=== PATIENT | male | born 1960 | race Caucasian/White ===

== ENCOUNTER 2016-07-11 11:20 | Emergency (ER) | payer OTHER ==
[2016-07-11] MEDS ORDERED: HYDROcodone/Acetaminophen 10/325 mg Tablet ONE (12:01)
[2016-07-11] MEDS ORDERED: Cyclobenzaprine 10 MG TAB ONE (12:02)
[2016-07-11] MEDS ORDERED: Ibuprofen 800 MG TAB ONE (12:02)
--- NOTE | 2016-07-11 12:48 | ERRECORD ---
[facility] HPI BACK (12:00 SROB) CHIEF COMPLAINT: Patient presents for evaluation of injury, Patient presents for evaluation of pain. HISTORIAN: History provided by patient. MECHANISM OF INJURY: Mechanism of injury: Body motion, extension, He was moving from crouched toupright positon yesterday when he felt sudden pain in the lower back. This is similar to prior episode about 10 years ago. LOCATION: Symptoms are localized to the back, to lumbar spine. SEVERITY: Maximum severity of symptoms severe, Currently symptoms are severe. TIME COURSE: Sudden onset of symptoms, Date and time of onset was 07/10/2016 16:02. ASSOCIATED WITH: Associated with abdominal pain, No associated bladder incontinence, No associated bowel incontinence, No associated fever, He has trouble standing upright to walk without assistance due to pain. EXACERBATED BY: Patient's condition exacerbated by extension, Patient's condition exacerbated by upright position, Patient's condition exacerbated by walking. RELIEVED BY: Patient's condition relieved by nothing. RISK FACTORS: No epidural bleed risk factors, No epidural abcess risk factors. ROS (12:04 SROB) CONSTITUTIONAL: Historian denies chills, denies fever. ENT: Historian denies epistaxis, denies otalgia, denies rhinorrhea, denies sore throat. CARDIOVASCULAR: Historian denies chest pain. GI: Historian denies nausea, denies vomiting. MUSCULOSKELETAL: Historian reports back pain, reports neck pain. He says he has had some pain readiating from the occiput into his right neck for the last week as well prior totheinjury causing his v9isit. He gives a history of a bad disc at L4?. SKIN: Historian denies rash. NEUROLOGIC: Historian denies headache. PAST MEDICAL HISTORY (11:43 BDON) MEDICAL HISTORY: Notes: gout, back pain, Flu vaccine not up to date, Tetanus immunization up to date, Pneumococcal vaccine not up to date, Past medical history includes history of hypertension, which has been treated, Patient is compliant. MALE SURGICAL HISTORY: Surgical history of hernia repair. PSYCHIATRIC HISTORY: No previous psychiatric history. SOCIAL HISTORY: Patient denies alcohol use, Patient denies drug use, Patient has no smoking history. KNOWN ALLERGIES No Known Allergies (Unconfirmed) No Known Drug Allergies &a-1R&a+25V*p+0X*n6008X*c202B*c15G*c2P*p-0X&a-25V&a+1R Name: Phil Kwan : 1960 M55 MedRec: [id number] AcctNum: [id number] Prepared: Sat Jul 11, 2016 13:41 by Interface Page 1 of 3 pMD [facility] EMERGENCY RECORD CURRENT MEDICATIONS amLODIPine: TABLET : Strength - 10 mg : ORAL Patient Dose: 10 mg Oral once a day.PT NOT SURE OF DOSAGE. (11:38 BDON) indomethacin: CAPSULE : Strength - 50 mg : ORAL Patient Dose: As Needed. (11:39 BDON) cortisone: TABLET : Strength - 10 mg : ORAL Patient Dose: 2 times a day. (11:40 BDON) VITAL SIGNS (12:51 EPIE) VITAL SIGNS: BP: 137/82, Pulse: 80, Resp: 20, Temp: 98.1 oral, Pain: 1, O2 sat: 96 on ra, Time: 07/11/2016 12:51. PHYSICAL EXAM CONSTITUTIONAL: Vital signs reviewed, Patient alert and oriented to person, place and time. (12:05 SROB) HEAD: Head exam included findings of head atraumatic, normocephalic. (12:05 SROB) EYES: Pupils equally round and reactive to light, Extraocular muscles intact, Conjunctiva normal. (12:05 SROB) ENT: Ear exam normal, external ear normal, no drainage, no bleeding, Nose exam normal, no bleeding from nares. (12:05 SROB) NECK: Neck exam included findings of normal range of motion, Trachea midline, no jugular venous distention. (12:05 SROB) RESPIRATORY CHEST: Respiratory exam included findings of no respiratory distress, Breath sounds clear, No wheezing, No rales, No rhonchi. (12:05 SROB) CARDIOVASCULAR: Cardiovascular exam included findings of heart rate regular rate and rhythm, Heart sounds normal, normal S1, normal S2, no murmurs. (12:05 SROB) ABDOMEN MALE: Abdominal exam normal. (12:06 SROB) BACK: Back exam included findings of normal inspection, Range of motion, limited by pain, no costovertebral angle tenderness, Straight leg raise, with pain on the left at 30 degrees, with pain on the right at 30 degrees. (12:06 SROB) NEURO: Neuro exam findings include patient oriented to person, place and time, [place] coma scale 15, Speech normal, Gait normal, Memory normal, Cranial nerves intact, Deep tendon reflexes normal, no focal motor deficits, no focal sensory deficits, no cerebellar deficits, Normal sensation legs and groin area. (12:06 SROB) SKIN: Skin exam included findings of skin warm, dry. (12:05 SROB) MEDICATION ADMINISTRATION SUMMARY &a-1R&a+25V*p+0X*l5290W*c202B*c15G*c2P*p-0X&a-25V&a+1R Name: Phil Kwan : 1960 M55 MedRec: [id number] AcctNum: [id number] Prepared: Sat Jul 11, 2016 13:41 by Interface Page 2 of 3 pMD [facility] EMERGENCY RECORD Drug Name: Excel, Dose Ordered: 10/325 mg, Route: Oral, Status: Given, Time: 12:06 07/11/2016, Drug Name: Motrin, Dose Ordered: 800 mg, Route: Oral, Status: Given, Time: 12:07/11/2016, Drug Name: Flexeril, Dose Ordered: 10 mg, Route: Oral, Status: Given, Time: 12:05 07/11/2016, Detailed record available in Medication Service section. DOCTOR NOTES (12:44 SROB) RE-EVALUATION: The patient's condition has improved, Pt. able to walk with minor pain after meds. PROBLEM LIST No recorded problems DIAGNOSIS (12:42 SROB) FINAL: PRIMARY: LOW BACK PAIN. PRESCRIPTION Flexeril: TABLET : 10 mg : ORAL : Quantity: 1 Unit: tab(s) Route: ORAL Schedule: every 8 hours PRN Dispense: 30 Unit: tab(s) May substitute. Refills: No Refills . (12:41 SROB) NOTES: No Refills. (12:41 SROB) Naprosyn: TABLET : 500 mg : ORAL : Quantity: 1 Unit: tab(s) Route: ORAL Schedule: 2 times a day Dispense: 30 Unit: tab(s) May substitute. Refills: No Refills . (12:42 SROB) NOTES: No Refills. (12:42 SROB) DISPOSITION PATIENT: Disposition Type: Discharge, Disposition: *Discharge Home, Disposition Transport: Ambulatory, Condition: Good. (12:42 SROB) Patient left the department. (12:58 EPIE) Mcleod: BDON=SHERRY Solano, Concepcion EPIE=SHERRY Scanlon, Ava SROB=MD Denis, Jorge Luis &a-1R&a+25V*p+0X*b4957P*c202B*c15G*c2P*p-0X&a-25V&a+1R Name: Aniya Phil Marilin : 1960 M55 MedRec: [id number] AcctNum: [id number] Prepared: Mick Jul 11, 2016 13:41 by Interface Page 3 of 3 pMD MTDD
--- NOTE | 2016-07-11 12:54 | PICIS ---
[facility] EMERGENCY RECORD TRIAGE ([facility] Jul 11, 2016 11:38 BDON) TRIAGE NOTES: Bilateral low back pain radiating into bilateral thigh. States whole body "seizes up". ([facility] Jul 11, 2016 11:38 BDON) PATIENT: NAME: Phil Kwan, AGE: 55, GENDER: male, : Wed1960, TIME OF GREET: WedJul 11, 2016 11:21, PREFERRED LANGUAGE: Japanese, ETHNICITY: Not or , ECODE BILLING MAP: [facility], SSN: [id number], Zip Code: [address], KG WEIGHT: 113.40, PHONE: , , , PERSON ID: [id number], PCP: Natalie Rogers, /Sandy. ([facility] Jul 11, 2016 11:38 BDON) COMPLAINT: LOW BACK PAIN. ([facility] Jul 11, 2016 11:38 BDON) ADMISSION: URGENCY: 4 Non Urgent, ADMISSION SOURCE: Home, TRANSPORT: Walk-in, BED: TRIAGE. ([facility] Jul 11, 2016 11:38 BDON) ASSESSMENT: Assessment: In the attic, crunched over, stood up and pain started. (11:43 BDON) PAIN: Patient complains of pain described as. (11:43 BDON) TREATMENTS IN PROGRESS: Medications Given, Treatments given Prehospital: muscler relaxer 2 tablets 0800. (11:43 BDON) PROVIDERS: TRIAGE NURSE: Concepcion Solano RN. ([facility] Jul 11, 2016 11:38 BDON) PREVIOUS VISIT ALLERGIES: No Known Drug Allergies. ([facility] Jul 11, 2016 11:38 BDON) No Known Drug Allergies. (11:43 BDON) KNOWN ALLERGIES No Known Allergies (Unconfirmed) No Known Drug Allergies CURRENT MEDICATIONS amLODIPine: TABLET : Strength - 10 mg : ORAL Patient Dose: 10 mg Oral once a day.PT NOT SURE OF DOSAGE. (11:38 BDON) indomethacin: CAPSULE : Strength - 50 mg : ORAL Patient Dose: As Needed. (11:39 BDON) cortisone: TABLET : Strength - 10 mg : ORAL Patient Dose: 2 times a day. (11:40 BDON) VITAL SIGNS (12:51 EPIE) VITAL SIGNS: BP: 137/82, Pulse: 80, Resp: 20, Temp: 98.1 oral, Pain: 1, O2 sat: 96 on ra, Time: 07/11/2016 12:51. NURSING ASSESSMENT: BACK (11:45 BDON) CONSTITUTIONAL: Patient arrives, via hospital wheelchair, History obtained from patient, Patient appears, in distress due to pain, Patient cooperative, Patient alert, Oriented to person, &a-1R&a+25V*p+0X*r6520R*c202B*c15G*c2P*p-0X&a-25V&a+1R Name: Phil Kwan : 1960 M55 MedRec: [id number] AcctNum: [id number] Prepared: Sat Jul 11, 2016 13:47 by Interface Page 1 of 6 pMD [facility] EMERGENCY RECORD place and time, Skin warm, Skin dry, Skin normal in color. PAIN: to the lower back, radiates bilateral legs. BACK: Weakness to. NECK: Neck assessment findings include trachea midline. SAFETY: Cart/Stretcher in lowest position, Family at bedside, Hospital ID band on, Patient in view of the nursing station. NURSING PROCEDURE: DISCHARGE NOTE (12:51 EPIE) DISCHARGE: Patient discharged to home, ambulating without assistance, family driving, accompanied by //partner, Summary of Care printed/ provided, Discharge instructions given to patient, Simple or moderate discharge teaching performed, Prescriptions given and instructions on side effects given, Name of prescription(s) given: norco, flexeril, naprosyn, Above person(s) verbalized understanding of discharge instructions and follow-up care. BELONGINGS: Belongings and valuables with patient upon arrival to the Emergency Department include:, Belongings and valuables with patient at time of discharge include:, Belongings remain with patient, Valuables remain with patient. VITAL SIGNS: BP: 137, / 82, Pulse: 80, Resp: 20, Temp: 98.1 oral, Pain: 1, O2 sat: 96, on: ra. MEDICATION ADMINISTRATION SUMMARY Drug Name: [place], Dose Ordered: 10/325 mg, Route: Oral, Status: Given, Time: 12:06 07/11/2016, Drug Name: Motrin, Dose Ordered: 800 mg, Route: Oral, Status: Given, Time: 12:05 07/11/2016, Drug Name: Flexeril, Dose Ordered: 10 mg, Route: Oral, Status: Given, Time: 12:05 07/11/2016, Detailed record available in Medication Service section. MEDICATION SERVICE Flexeril: Order: Flexeril (cyclobenzaprine HCl) - Dose: 10 mg : Oral Schedule: Now Ordered by: Jorge Luis Barrios MD Entered by: Jorge Luis Barrios MD Sat Jul 11, 2016 11:57 , Acknowledged by: Ava Scanlon RN Sat Jul 11, 2016 12:01 Documented as given by: Ava Scanlon RN Sat Jul 11, 2016 12:05 Patient, Medication, Dose, Route and Time verified prior to administration. Amount given: 10mg, Site: Medication administered P.O., Correct patient, time, route, dose and medication confirmed prior to administration, Patient advised of actions and side-effects prior to administration, Allergies confirmed and medications reviewed prior to administration. Motrin: Order: Motrin (ibuprofen) - Dose: 800 mg : Oral &a-1R&a+25V*p+0X*z8311Q*c202B*c15G*c2P*p-0X&a-25V&a+1R Name: Phil Kwan : 1960 M55 MedRec: [id number] AcctNum: [id number] Prepared: Sat Jul 11, 2016 13:47 by Interface Page 2 of 6 pMD [facility] EMERGENCY RECORD Schedule: Now Ordered by: Jorge Luis Barrios MD Entered by: Jorge Luis Barrios MD Sat Jul 11, 2016 11:57 , Acknowledged by: Ava Scanlon RN Sat Jul 11, 2016 12:01 Documented as given by: Ava Scanlon RN Sat Jul 11, 2016 12:05 Patient, Medication, Dose, Route and Time verified prior to administration. Amount given: 800mg, Site: Medication administered P.O., Correct patient, time, route, dose and medication confirmed prior to administration, Patient advised of actions and side-effects prior to administration, Allergies confirmed and medications reviewed prior to administration. Plainview: Order: [place] (hydrocodone bitartrate/acetaminophen) - Dose: 10/325 mg : Oral Schedule: Now Ordered by: Jorge Luis Barrios MD Entered by: Jorge Luis Barrios MD Sat Jul 11, 2016 11:56 , Acknowledged by: Ava Scanlon RN Sat Jul 11, 2016 12:01 Documented as given by: Ava Scanlon RN Sat Jul 11, 2016 12:06 Patient, Medication, Dose, Route and Time verified prior to administration. Amount given: 10/325mg, Site: Medication administered P.O., Correct patient, time, route, dose and medication confirmed prior to administration, Patient advised of actions and side-effects prior to administration, Allergies confirmed and medications reviewed prior to administration. HPI BACK (12:00 SROB) CHIEF COMPLAINT: Patient presents for evaluation of injury, Patient presents for evaluation of pain. HISTORIAN: History provided by patient. MECHANISM OF INJURY: Mechanism of injury: Body motion, extension, He was moving from crouched toupright positon yesterday when he felt sudden pain in the lower back. This is similar to prior episode about 10 years ago. LOCATION: Symptoms are localized to the back, to lumbar spine. SEVERITY: Maximum severity of symptoms severe, Currently symptoms are severe. TIME COURSE: Sudden onset of symptoms, Date and time of onset was 07/10/2016 16:02. ASSOCIATED WITH: Associated with abdominal pain, No associated bladder incontinence, No associated bowel incontinence, No associated fever, He has trouble standing upright to walk without assistance due to pain. EXACERBATED BY: Patient's condition exacerbated by extension, Patient's condition exacerbated by upright position, Patient's condition exacerbated by walking. RELIEVED BY: Patient's condition relieved by nothing. RISK FACTORS: No epidural bleed risk factors, No epidural abcess risk factors. ROS (12:04 SROB) &a-1R&a+25V*p+0X*f7013W*c202B*c15G*c2P*p-0X&a-25V&a+1R Name: Phil Kwan : 1960 M55 MedRec: [id number] AcctNum: [id number] Prepared: Sat Jul 11, 2016 13:47 by Interface Page 3 of 6 pMD [facility] EMERGENCY RECORD CONSTITUTIONAL: Historian denies chills, denies fever. ENT: Historian denies epistaxis, denies otalgia, denies rhinorrhea, denies sore throat. CARDIOVASCULAR: Historian denies chest pain. GI: Historian denies nausea, denies vomiting. MUSCULOSKELETAL: Historian reports back pain, reports neck pain. He says he has had some pain readiating from the occiput into his right neck for the last week as well prior totheinjury causing his v9isit. He gives a history of a bad disc at L4?. SKIN: Historian denies rash. NEUROLOGIC: Historian denies headache. PAST MEDICAL HISTORY (11:43 BDON) MEDICAL HISTORY: Notes: gout, back pain, Flu vaccine not up to date, Tetanus immunization up to date, Pneumococcal vaccine not up to date, Past medical history includes history of hypertension, which has been treated, Patient is compliant. MALE SURGICAL HISTORY: Surgical history of hernia repair. PSYCHIATRIC HISTORY: No previous psychiatric history. SOCIAL HISTORY: Patient denies alcohol use, Patient denies drug use, Patient has no smoking history. PHYSICAL EXAM CONSTITUTIONAL: Vital signs reviewed, Patient alert and oriented to person, place and time. (12:05 SROB) HEAD: Head exam included findings of head atraumatic, normocephalic. (12:05 SROB) EYES: Pupils equally round and reactive to light, Extraocular muscles intact, Conjunctiva normal. (12:05 SROB) ENT: Ear exam normal, external ear normal, no drainage, no bleeding, Nose exam normal, no bleeding from nares. (12:05 SROB) NECK: Neck exam included findings of normal range of motion, Trachea midline, no jugular venous distention. (12:05 SROB) RESPIRATORY CHEST: Respiratory exam included findings of no respiratory distress, Breath sounds clear, No wheezing, No rales, No rhonchi. (12:05 SROB) CARDIOVASCULAR: Cardiovascular exam included findings of heart rate regular rate and rhythm, Heart sounds normal, normal S1, normal S2, no murmurs. (12:05 SROB) ABDOMEN MALE: Abdominal exam normal. (12:06 SROB) BACK: Back exam included findings of normal inspection, Range of motion, limited by pain, no costovertebral angle tenderness, Straight leg raise, with pain on the left at 30 degrees, with pain on the right at 30 degrees. (12:06 SROB) NEURO: Neuro exam findings include patient oriented to person, place and time, [place] coma scale 15, Speech normal, Gait normal, Memory normal, Cranial nerves intact, Deep tendon reflexes normal, no &a-1R&a+25V*p+0X*b3574M*c202B*c15G*c2P*p-0X&a-25V&a+1R Name: Phil Kwan : 1960 M55 MedRec: [id number] AcctNum: [id number] Prepared: [facility] Jul 11, 2016 13:47 by Interface Page 4 of 6 pMD [facility] EMERGENCY RECORD focal motor deficits, no focal sensory deficits, no cerebellar deficits, Normal sensation legs and groin area. (12:06 SROB) SKIN: Skin exam included findings of skin warm, dry. (12:05 SROB) EVENTS TRANSFER: Triage to Emergency Triage. (Sat Jul 11, 2016 11:38 BDON) Emergency Triage to Emergency Room -03. (11:40 BDON) Removed from Emergency Emergency Room -03. (12:58 EPIE) DOCTOR NOTES (12:44 SROB) RE-EVALUATION: The patient's condition has improved, Pt. able to walk with minor pain after meds. PROBLEM LIST No recorded problems DIAGNOSIS (12:42 SROB) FINAL: PRIMARY: LOW BACK PAIN. DISPOSITION PATIENT: Disposition Type: Discharge, Disposition: *Discharge Home, Disposition Transport: Ambulatory, Condition: Good. (12:42 SROB) Patient left the department. (12:58 EPIE) INSTRUCTION (12:43 SROB) DISCHARGE: BACK PAIN (ACUTE OR CHRONIC), BACK CARE TIPS, BACK EXERCISES, LUMBAR. FOLLOWUP: [facility], [facility], [address] [place] [id number], , Follow up with Primary Care Physician in 5 days. PRESCRIPTION Flexeril: TABLET : 10 mg : ORAL : Quantity: 1 Unit: tab(s) Route: ORAL Schedule: every 8 hours PRN Dispense: 30 Unit: tab(s) May substitute. Refills: No Refills . (12:41 SROB) NOTES: No Refills. (12:41 SROB) Naprosyn: TABLET : 500 mg : ORAL : Quantity: 1 Unit: tab(s) Route: ORAL Schedule: 2 times a day Dispense: 30 Unit: tab(s) May substitute. Refills: No Refills . (12:42 SROB) NOTES: No Refills. (12:42 SROB) IMAGING RX: Image captured from scanner. (12:45 EPIE) *DISCHARGE INSTRUCTIONS RECEIPT: Image captured from scanner. (12:57 EPIE) &a-1R&a+25V*p+0X*i2650A*c202B*c15G*c2P*p-0X&a-25V&a+1R Name: Phil Kwan : 1960 M55 MedRec: [id number] AcctNum: [id number] Prepared: Sat Jul 11, 2016 13:47 by Interface Page 5 of 6 pMD [facility] EMERGENCY RECORD *SUPPLY CHARGE SHEET: Image captured from scanner. (12:57 EPIE) ADMIN DIGITAL SIGNATURE: MD Barrios Sam. (12:43 SROB) MD Barrios Sam. (13:36 SROB) Mcleod: BDON=SHERRY Solano, Concepcion EPIE=SHERRY Scanlon, Ava SROB=MD Denis, Jorge Luis &a-1R&a+25V*p+0X*y4143Y*c202B*c15G*c2P*p-0X&a-25V&a+1R Name: Phil Kwan : 1960 M55 MedRec: [id number] AcctNum: [id number] Prepared: Sat Jul 11, 2016 13:47 by Interface Page 6 of 6 pMD MTDD
== END 2016-07-11 12:51 | disposition home or self-care (01) ==
LOC: NAV ERS 11:20
DX: M54.5 Low back pain (principal); M10.9 Gout, unspecified; I10 Essential (primary) hypertension; Z79.899 Other long term (current) drug therapy
CPT/HCPCS: 99283

== ENCOUNTER 2017-02-25 08:41 | Outpatient (CLI) | payer OTHER ==
--- NOTE | 2017-02-25 10:37 | RAD ---
CERVICAL SPINE FOUR VIEWS: History: Neck pain, radiculopathy to left arm. FINDINGS: Cervical vertebrae maintain height and alignment. Moderate degenerative changes are noted. There are osteophyte seen anteriorly at C3-4, C4-5, C5-6 and C6-7. Mild loss of disc space is noted at C5-6. Posterior spondolytic changes are noted at C5-6 and C6-7. Vertebral body height and alignment is herve ntained normally. IMPRESSION: There are moderate degenerative changes of the cervical spine most pronounced at the C5-6 level. POS: [facility]
--- NOTE | 2017-02-25 12:48 | ULT ---
CAROTID ULTRASOUND WITH PINEDO SCALE AND DOPPLER DUPLEX COLOR FLOW IMAGING SPECTRAL ANALYSIS PERFORMED: CLINICAL INDICATION: Cervicalgia, neck pain, cervical radiculopathy. FINDINGS: There is mild intimal thickening/plaque formation is seen within the carotid arteries. PEAK SYSTOLIC VELOCITY (CM/S): Right CCA 96 Left CCA 117 Right ICA 71 Left ICA 55 There is antegrade flow within the visualized bilateral vertebral arteries. IMPRESSION: 1. No hemodynamically significant stenosis of the right internal carotid artery. 2. No hemodynamically significant stenosis of the left internal carotid artery. POS: [facility]
== END 2017-02-25 08:42 | disposition home or self-care (01) ==
LOC: NAV ULT 08:41
PROVIDERS: ATTEND Family Medicine
DX: M47.22 Other spondylosis with radiculopathy, cervical region (principal); M54.10 Radiculopathy, site unspecified; M54.2 Cervicalgia
CPT/HCPCS: 72040; 93880

== ENCOUNTER 2017-07-04 17:24 | Emergency (ER) | payer OTHER ==
[2017-07-04] MEDS ORDERED: Sterile Water 100 ML ONE (17:35)
[2017-07-04] MEDS ORDERED: methylPREDNISolone Sod Succ/PF 125 MG/2 ML VIAL ONE (17:35)
[2017-07-04] MEDS ORDERED: diphenhydrAMINE 50 MG/ML VIAL ONE (17:35)
== END 2017-07-04 19:05 | disposition home or self-care (01) ==
LOC: NAV ERS 17:24
DX: L29.9 Pruritus, unspecified (principal); R21 Rash and other nonspecific skin eruption; T39.315A Adverse effect of propionic acid derivatives, initial encounter; I10 Essential (primary) hypertension; Z79.899 Other long term (current) drug therapy
CPT/HCPCS: 96372; J1200; J2930

== ENCOUNTER 2017-07-06 16:13 | Emergency (ER) | payer OTHER ==
[2017-07-06] MEDS ORDERED: methylPREDNISolone Sod Succ/PF 125 MG/2 ML VIAL ONE (16:41)
== END 2017-07-06 17:07 | disposition home or self-care (01) ==
LOC: NAV ERS 16:13
DX: M25.511 Pain in right shoulder (principal); M79.601 Pain in right arm; M10.9 Gout, unspecified; I10 Essential (primary) hypertension; Z79.891 Long term (current) use of opiate analgesic
CPT/HCPCS: 99283; J2930

== ENCOUNTER 2017-09-30 14:51 | Outpatient (CLI) | payer OTHER ==
--- NOTE | 2017-09-30 16:05 | RAD ---
CHEST PA AND LATERAL: HISTORY: A 56-year-old male with a history of shortness of breath, cough, and upper respiratory tract infectio n. COMPARISON: 04/21/15. FINDINGS: Heart size is within normal limits. Atherosclerosis of the aorta. Mild biapical pleural thickening. Small old granuloma calcifications. IMPRESSION: Old granulomatous disease. Biapical pleural thickening. No confluent pneumonia, overt edema, pleura l effusion, or other active intrathoracic disease. POS: [facility]
== END 2017-09-30 14:52 | disposition home or self-care (01) ==
LOC: NAV RAD 14:51
DX: J06.9 Acute upper respiratory infection, unspecified (principal); D71 Functional disorders of polymorphonuclear neutrophils
CPT/HCPCS: 71046

== ENCOUNTER 2018-03-26 01:55 | Emergency (ER) | payer OTHER ==
[2018-03-26] MEDS ORDERED: methylPREDNISolone Acetate 40 mg/ml Vial ONE (02:19)
== END 2018-03-26 02:29 | disposition home or self-care (01) ==
LOC: NAV ERS 01:55
DX: L50.0 Allergic urticaria (principal); I10 Essential (primary) hypertension; M10.9 Gout, unspecified; F17.220 Nicotine dependence, chewing tobacco, uncomplicated; Z79.82 Long term (current) use of aspirin; Z79.899 Other long term (current) drug therapy
CPT/HCPCS: 96372; J1030

== ENCOUNTER 2018-07-16 21:40 | Emergency (ER) | payer OTHER ==
[2018-07-16] MEDS ORDERED: methylPREDNISolone Acetate 40 mg/ml Vial ONE (21:56)
== END 2018-07-16 22:05 | disposition home or self-care (01) ==
LOC: NAV ERS 21:40
DX: L50.9 Urticaria, unspecified (principal); M10.9 Gout, unspecified; I10 Essential (primary) hypertension; Z87.891 Personal history of nicotine dependence; Z79.899 Other long term (current) drug therapy; Z79.82 Long term (current) use of aspirin
CPT/HCPCS: 96372; J1030

== ENCOUNTER 2018-11-24 07:08 | Emergency (ER) | payer OTHER ==
[2018-11-24] MEDS ORDERED: Ondansetron PF 4 MG/2 ML Vial ONE (07:23)
[2018-11-24 07:43] LABS: #Basophils 0.1 thou/uL (0.0-0.2); #Eosinphils 0.4 thou/uL (0.0-0.7); #Lymphocytes 2.8 thou/uL (1.20-3.40); #Neutrophils 6.6 thou/uL (1.40-6.50); %Basophils 1.2 % (0.0-1.0); %Eosinophils 3.7 % (0.0-10.0); %Lymphocytes 25.4 % (21.0-51.0); %Neutrophils 60.7 % (42.0-75.0); Hemoglobin 16.4 g/dL (14.0-18.0); Mean Corpuscular HGB CONC 32.7 g/dL (32.0-36.0); Mean Corpuscular Hemoglobin 27.5 pg (27.0-31.0); Mean Corpuscular Volume 84.1 fL (78.0-98.0); Mean Platelet Volume 6.5 fL (7.4-10.4); Platelet Count 299 thou/uL (130-400); RBC Distribution Width 12.3 % (11.5-14.5); Red Blood Cell (RBC) Count 5.97 mill/uL (4.70-6.10); White Blood Cell (WBC) Count 10.9 thou/uL (4.8-10.8)
[2018-11-24 07:44] LABS: Bilirubin Negative (Negative); Blood, Urine Moderate (Negative); Clarity Clear (Clear); Glucose, Urine (Dipstick) Negative (Negative); Leukocyte Negative (Negative); Nitrite Negative (Negative); Protein, Urine (Dipstick) 30 mg/dL (Neg-Trace); Specific Gravity, Urine 1.025 (1.005-1.030); Urobilinogen 0.2 mg/dL (0.2-1.0); pH, Urine 5.5 (5.0-9.0)
--- NOTE | 2018-11-24 07:47 | CT ---
CT Stone Protocol History: Abdominal pain Comparison: CT abdomen and pelvis 2013 Findings: Lung bases are clear. No pericardial effusion. Liver is enlarged. Noncontrast evaluation of the spleen, pancreas, gallbladder are unremarkable. Adre nal glands are normal. There is a low-grade left hydroureteronephrosis without a calculus appreciated. Punctate interpolar 1 to 2 mm left renal calculus. No right hydroureteronephrosis or nephroureterolithiasis. No dilated loops of large or small bowel. The appendix is visualized and is normal. No retroperitonea l periaortic adenopathy. Advanced degenerative disc space disease at L5/S1. Simple cyst hepatic segment 5 and hepatic segment 2. Small bilateral renal hypodensities incompletely evaluated on this examination. Impression: 1. Low-grade left hydroureteronephrosis without visualized calculus may be sequelae of a recently pas sed stone. Follow-up CT urogram may be performed in 3-6 months clinically warranted. 2. Punctate interpolar 1 to 2 mm left renal calculus.
[2018-11-24 07:57] LABS: ALT (SGPT) 25 U/L (8-55); AST (SGOT) 18 U/L (5-34); Albumin 4.5 g/dL (3.5-5.0); Alkaline Phosphatase 73 U/L (40-150); Anion Gap 18 mmol/L (10-20); BUN (Urea Nitrogen) 19 mg/dL (8.4-25.7); Bilirubin, Total 0.5 mg/dL (0.2-1.2); Calc. Creatinine Clearance 0 mL/min (70-130); Calcium 9.9 mg/dL (7.8-10.44); Carbon Dioxide 27 mmol/L (22-29); Chloride 100 mmol/L (98-107); Estimated GFR-MDRD 53; Globulin 3.7 g/dL (2.4-3.5); Glucose 108 mg/dL (70-105); Potassium 3.9 mmol/L (3.5-5.1); Protein, Total 8.2 g/dL (6.0-8.3); Sodium 141 mmol/L (136-145)
[2018-11-24 08:00] LABS: Bacteria/HPF Rare-Few HPF (None Seen); RBC/HPF 21-50 HPF (0-3); Squamous Epithelial 0-3 HPF (0-3); WBC/HPF None Seen HPF (0-3)
[2018-11-24 08:01] LABS: Other Microscopic Description NO
[2018-11-24] MEDS ORDERED: HYDROcodone/Acetaminophen 5/325 mg Tablet ONE (10:14)
[2018-11-24] MEDS ORDERED: Sodium Chloride 0.9% 1,000 ML ONE (10:14)
[2018-11-24] MEDS ORDERED: Acetaminophen/Codeine 30-300mg Tablet ONE (12:01)
== END 2018-11-24 13:07 | disposition home or self-care (01) ==
LOC: NAV ERS 07:08
DX: N13.2 Hydronephrosis with renal and ureteral calculous obstruction (principal); M10.9 Gout, unspecified; I10 Essential (primary) hypertension; I25.2 Old myocardial infarction; Z87.891 Personal history of nicotine dependence; Z79.82 Long term (current) use of aspirin; Z79.891 Long term (current) use of opiate analgesic; Z87.442 Personal history of urinary calculi; Z79.899 Other long term (current) drug therapy
CPT/HCPCS: 74176; 80053; 81003; 81015; 85025; 96361; 96374; 96375; 96376; J1170; J2405; J7050

== ENCOUNTER 2018-12-10 05:20 | Emergency (ER) | payer OTHER | END 2018-12-10 05:58 | disposition left against medical advice (07) | LOC: NAV ERS 05:20 | DX: Z53.21 Procedure and treatment not carried out due to patient leaving prior to being seen by health care provider (principal) ==

== ENCOUNTER 2019-01-09 20:41 | Emergency (ER) | payer OTHER ==
[2019-01-09] MEDS ORDERED: predniSONE 20 MG TAB ONE (21:13)
== END 2019-01-09 21:23 | disposition home or self-care (01) ==
LOC: NAV ERS 20:41
DX: L50.0 Allergic urticaria (principal); I25.2 Old myocardial infarction; M10.9 Gout, unspecified; Z79.899 Other long term (current) drug therapy; Z79.82 Long term (current) use of aspirin
CPT/HCPCS: 99282; J7512

== ENCOUNTER 2019-03-28 19:02 | Emergency (ER) | payer OTHER ==
[~2019-03-28 19:02] MED LIST: Iopamidol 370 76% 100 ML VIAL ONE
[2019-03-28 19:53] LABS: #Basophils 0.1 thou/uL (0.0-0.2); #Eosinphils 0.3 thou/uL (0.0-0.7); #Lymphocytes 2.7 thou/uL (1.20-3.40); #Monocytes 0.7 thou/uL (0.11-0.59); #Neutrophils 8.4 thou/uL (1.40-6.50); %Basophils 0.6 % (0.0-1.0); %Eosinophils 2.2 % (0.0-10.0); %Lymphocytes 22.3 % (21.0-51.0); %Neutrophils 68.9 % (42.0-75.0); Hemoglobin 15.2 g/dL (14.0-18.0); Mean Corpuscular HGB CONC 33.7 g/dL (32.0-36.0); Mean Corpuscular Hemoglobin 28.7 pg (27.0-31.0); Mean Corpuscular Volume 85.3 fL (78.0-98.0); Mean Platelet Volume 6.4 fL (7.4-10.4); Platelet Count 293 thou/uL (130-400); Red Blood Cell (RBC) Count 5.31 mill/uL (4.70-6.10); White Blood Cell (WBC) Count 12.1 thou/uL (4.8-10.8)
[2019-03-28 20:09] LABS: ALT (SGPT) 22 U/L (8-55); AST (SGOT) 20 U/L (5-34); Albumin 4.3 g/dL (3.5-5.0); Alkaline Phosphatase 68 U/L (40-110); Anion Gap 17 mmol/L (10-20); BUN (Urea Nitrogen) 12 mg/dL (8.4-25.7); Bilirubin, Total 0.6 mg/dL (0.2-1.2); CK (CPK) 114 U/L (30-200); Calc. Creatinine Clearance 0 mL/min (70-130); Calcium 9.5 mg/dL (7.8-10.44); Carbon Dioxide 28 mmol/L (22-29); Chloride 96 mmol/L (98-107); Estimated GFR-MDRD 52; Globulin 3.6 g/dL (2.4-3.5); Glucose 140 mg/dL (70-105); Potassium 3.2 mmol/L (3.5-5.1); Protein, Total 7.9 g/dL (6.0-8.3); Sodium 138 mmol/L (136-145)
--- NOTE | 2019-03-28 21:14 | CT ---
CTA CHEST WITH CONTRAST, AND 3-D VOLUME RENDERING CLINICAL INDICATION: Dyspnea Comparison exam: None FINDINGS: Pulmonary embolus:No significant filling defect is identified within the pulmonary arteries. There is an aberrant right subclavian artery. Pulmonary parenchymal consolidation:Scattered nonspecific groundglass alveolar opacities are present throughout each lung with mild interstitial prominence. There are scattered granulomatous calcifications. Pleural effusion: None Pneumothorax: None Osseous structures: No acute process. Low-attenuation of the imaged liver may relate to hepatic steatosis. IMPRESSION: No acute pulmonary embolus. Bilateral groundglass alveolar opacities and interstitial prominence. This could relate to edema. Cor relate clinically.
[2019-03-28] MEDS ORDERED: methylPREDNISolone Sod Succ/PF 125 MG/2 ML VIAL ONE (21:49)
[2019-03-28 22:39] LABS: Bilirubin Negative (Negative); Blood, Urine Trace (Negative); Clarity Clear (Clear); Glucose, Urine (Dipstick) Negative (Negative); Leukocyte Negative (Negative); Nitrite Negative (Negative); Protein, Urine (Dipstick) Negative (Neg-Trace)
[2019-03-28 22:40] LABS: Bacteria/HPF None Seen HPF (None Seen); RBC/HPF 0-3 HPF (0-3); Squamous Epithelial 0-3 HPF (0-3); WBC/HPF None Seen HPF (0-3)
[2019-03-31 15:10] LABS: Cytoplasmic (C-ANCA) <1:20 titer (Neg:<1:20); Myeloperoxidase AutoAbs <9.0 U/mL (0.0-9.0); Perinuclear (P-ANCA) <1:20 titer (Neg:<1:20); Proteinase-3 AutoAbs Less than 3.5 U/mL (0.0-3.5)
[2019-03-31 16:14] LABS: ANA Symphony (Qualitative) Negative (Negative); ANA Symphony (Quantitative) 0.2 Ratio (< 0.7 Negative); dsDNA IgG Antibody Less than 0.5 IU/mL (<10 Negative)
== END 2019-03-28 22:20 | disposition home or self-care (01) ==
LOC: NAV ERS 19:02
DX: J67.9 Hypersensitivity pneumonitis due to unspecified organic dust (principal); L50.9 Urticaria, unspecified; I25.2 Old myocardial infarction; Z87.442 Personal history of urinary calculi; Z79.899 Other long term (current) drug therapy; Z79.891 Long term (current) use of opiate analgesic; Z79.82 Long term (current) use of aspirin
CPT/HCPCS: 36415; 71275; 80053; 81003; 81015; 82550; 83520; 83880; 84484; 85025; 85652; 86038; 86225; 86256; 86331; 86602; 86606; 86671; 93005; 96374; J2930; Q9967

== ENCOUNTER 2019-04-18 09:31 | Emergency (ER) | payer OTHER, SELFPAY ==
[2019-04-18 10:19] LABS: #Basophils 0.1 thou/uL (0.0-0.2); #Eosinphils 0.3 thou/uL (0.0-0.7); #Lymphocytes 2.5 thou/uL (1.20-3.40); #Monocytes 0.4 thou/uL (0.11-0.59); #Neutrophils 5.3 thou/uL (1.40-6.50); %Eosinophils 3.1 % (0.0-10.0); %Lymphocytes 29.3 % (21.0-51.0); %Monocytes 4.7 % (0.0-10.0); %Neutrophils 61.9 % (42.0-75.0); Hemoglobin 14.5 g/dL (14.0-18.0); Mean Corpuscular HGB CONC 33.5 g/dL (32.0-36.0); Mean Corpuscular Hemoglobin 29.2 pg (27.0-31.0); Mean Corpuscular Volume 87.3 fL (78.0-98.0); Mean Platelet Volume 6.7 fL (7.4-10.4); Platelet Count 264 thou/uL (130-400); RBC Distribution Width 11.8 % (11.5-14.5); Red Blood Cell (RBC) Count 4.97 mill/uL (4.70-6.10); White Blood Cell (WBC) Count 8.6 thou/uL (4.8-10.8)
--- NOTE | 2019-04-18 10:21 | CT ---
CT BRAIN WITHOUT CONTRAST: HISTORY: Headache. Dizziness. COMPARISON: 02/21/2013 FINDINGS: No evidence of acute infarct, hemorrhage, midline shift or abnormal extraaxial fluid collections is s een. The ventricular size is normal and the basilar cisterns are patent. The bony calvarium is intact . The visualized paranasal sinuses and mastoid air cells are well aerated. IMPRESSION: No CT evidence of acute intracranial process. POS: [facility]
--- NOTE | 2019-04-18 10:23 | RAD ---
PORTABLE CHEST 1 VIEW: Date: 04/18/19 Time: 0956 hours HISTORY: Chest pain. Dizziness. FINDINGS: Comparison made with exam of 11/14/18. The heart size is enlarged. No lobar consolidation, pneumothoraces, terrence pulmonary edema, or pleural effusions are seen. IMPRESSION: No acute process. POS: [facility]
[2019-04-18] MEDS ORDERED: Aspirin Chewable 81 MG TAB ONE (10:40)
[2019-04-18 10:50] LABS: Carbon Dioxide 20 mmol/L (22-29); Chloride 107 mmol/L (98-107); Potassium 4.2 mmol/L (3.5-5.1); Sodium 140 mmol/L (136-145)
[2019-04-18 10:51] LABS: BUN (Urea Nitrogen) 14 mg/dL (8.4-25.7); Calc. Creatinine Clearance 0 mL/min (70-130); Estimated GFR-MDRD 56; Glucose 144 mg/dL (70-105)
[2019-04-18 10:52] LABS: ALT (SGPT) 22 U/L (8-55); AST (SGOT) 21 U/L (5-34); Albumin 3.9 g/dL (3.5-5.0); Alkaline Phosphatase 51 U/L (40-110); Bilirubin, Total 0.5 mg/dL (0.2-1.2); CK (CPK) 66 U/L (30-200); Globulin 3.2 g/dL (2.4-3.5); Protein, Total 7.1 g/dL (6.0-8.3)
[2019-04-18 10:53] LABS: Anion Gap 17 mmol/L (10-20)
== END 2019-04-18 12:07 | disposition home or self-care (01) ==
LOC: NAV ERS 09:31
DX: I10 Essential (primary) hypertension (principal); I25.2 Old myocardial infarction; M10.9 Gout, unspecified; Z87.442 Personal history of urinary calculi; Z79.82 Long term (current) use of aspirin; Z79.899 Other long term (current) drug therapy
CPT/HCPCS: 70450; 71045; 80053; 82550; 84484; 85025; 93005

== ENCOUNTER 2019-07-17 21:43 | Emergency (ER) | payer SELFPAY ==
[2019-07-17] MEDS ORDERED: predniSONE 20 MG TAB ONE (22:11)
== END 2019-07-17 22:10 | disposition home or self-care (01) ==
LOC: NAV ERS 21:43
DX: L50.9 Urticaria, unspecified (principal); I25.2 Old myocardial infarction; M10.9 Gout, unspecified; Z79.899 Other long term (current) drug therapy; Z79.891 Long term (current) use of opiate analgesic; Z79.82 Long term (current) use of aspirin
CPT/HCPCS: 99282; J7512

== ENCOUNTER 2019-10-15 07:41 | Emergency (ER) | payer SELFPAY | END 2019-10-15 08:18 | disposition home or self-care (01) | LOC: NAV ERS 07:41 | DX: L50.0 Allergic urticaria (principal); I25.2 Old myocardial infarction; M10.9 Gout, unspecified; Z87.442 Personal history of urinary calculi; Z79.891 Long term (current) use of opiate analgesic; Z79.899 Other long term (current) drug therapy | CPT/HCPCS: 99283 ==

== ENCOUNTER 2019-11-12 16:18 | Emergency (ER) | payer OTHER, SELFPAY ==
[2019-11-13 18:42] LABS: SARS-CoV-2 MS2 Positive; SARS-CoV-2 N Gene Negative; SARS-CoV-2 S Gene Negative; SARS-CoV-2 orf1ab Negative
== END 2019-11-12 17:45 | disposition home or self-care (01) ==
LOC: NAV ERS 16:18
DX: R19.7 Diarrhea, unspecified (principal); Z20.828 Contact with and (suspected) exposure to other viral communicable diseases; I25.2 Old myocardial infarction; M10.9 Gout, unspecified; Z87.442 Personal history of urinary calculi; Z79.891 Long term (current) use of opiate analgesic; Z79.899 Other long term (current) drug therapy
CPT/HCPCS: 87635; 99284; U0003

== ENCOUNTER 2019-12-16 06:31 | Emergency (ER) | payer SELFPAY ==
[2019-12-16] MEDS ORDERED: methylPREDNISolone Sod Succ/PF 125 MG/2 ML VIAL ONE (06:58)
== END 2019-12-16 07:25 | disposition home or self-care (01) ==
LOC: NAV ERS 06:31
DX: L50.9 Urticaria, unspecified (principal); I25.2 Old myocardial infarction; Z79.899 Other long term (current) drug therapy; M10.9 Gout, unspecified
CPT/HCPCS: J2930

== ENCOUNTER 2020-04-02 08:21 | Emergency (ER) | payer OTHER, SELFPAY ==
[2020-04-02] MEDS ORDERED: predniSONE 20 MG TAB ONE (08:45)
== END 2020-04-02 08:53 | disposition home or self-care (01) ==
LOC: NAV ERS 08:21
DX: L50.9 Urticaria, unspecified (principal); I25.2 Old myocardial infarction; M10.9 Gout, unspecified; Z87.442 Personal history of urinary calculi; Z79.82 Long term (current) use of aspirin; Z79.899 Other long term (current) drug therapy; Z85.828 Personal history of other malignant neoplasm of skin
CPT/HCPCS: 99282; J7512

== ENCOUNTER 2020-05-04 09:02 | Emergency (ER) | payer SELFPAY ==
[2020-05-04] MEDS ORDERED: methylPREDNISolone Acetate 40 mg/ml Vial ONE (09:27)
== END 2020-05-04 09:40 | disposition home or self-care (01) ==
LOC: NAV ERS 09:02
DX: L50.1 Idiopathic urticaria (principal); M10.9 Gout, unspecified; I25.2 Old myocardial infarction; Z87.442 Personal history of urinary calculi; Z79.82 Long term (current) use of aspirin; Z79.899 Other long term (current) drug therapy
CPT/HCPCS: 96372; 99283; J2920

== ENCOUNTER 2020-06-27 14:42 | Emergency (ER) | payer OTHER, SELFPAY ==
[2020-06-27] MEDS ORDERED: Acetaminophen/Codeine 30-300mg Tablet ONE (15:03)
[2020-06-27] MEDS ORDERED: methylPREDNISolone Acetate 40 mg/ml Vial ONE (15:04)
== END 2020-06-27 16:05 | disposition home or self-care (01) ==
LOC: NAV ERS 14:42
DX: M10.9 Gout, unspecified (principal); I25.2 Old myocardial infarction; Z79.899 Other long term (current) drug therapy; Z79.82 Long term (current) use of aspirin
CPT/HCPCS: 96372; 99283; J2920

== ENCOUNTER 2020-08-20 09:58 | Emergency (ER) | payer SELFPAY ==
[2020-08-20] MEDS ORDERED: methylPREDNISolone Acetate 40 mg/ml Vial ONE (10:26)
== END 2020-08-20 10:40 | disposition home or self-care (01) ==
LOC: NAV ERS 09:58
DX: M10.9 Gout, unspecified (principal); I25.2 Old myocardial infarction; Z79.82 Long term (current) use of aspirin; Z79.899 Other long term (current) drug therapy
CPT/HCPCS: 96372; 99283; J2920

== ENCOUNTER 2020-09-03 16:17 | Emergency (ER) | payer SELFPAY ==
[2020-09-03] MEDS ORDERED: Sodium Chloride 0.9% 1,000 ML ONE (16:56)
[2020-09-03 16:59] LABS: #Basophils 0.1 thou/uL (0.0-0.2); #Eosinphils 0.3 thou/uL (0.0-0.7); #Lymphocytes 2.5 thou/uL (1.20-3.40); #Monocytes 0.7 thou/uL (0.11-0.59); %Basophils 1.3 % (0.0-1.0); %Eosinophils 2.9 % (0.0-10.0); %Monocytes 7.5 % (0.0-10.0); %Neutrophils 62.3 % (42.0-75.0); Hemoglobin 15.6 g/dL (14.0-18.0); Mean Corpuscular HGB CONC 33.8 g/dL (32.0-36.0); Mean Corpuscular Hemoglobin 29.2 pg (27.0-31.0); Mean Corpuscular Volume 86.3 fL (78.0-98.0); Platelet Count 296 thou/uL (130-400); RBC Distribution Width 11.1 % (11.5-14.5); Red Blood Cell (RBC) Count 5.34 mill/uL (4.70-6.10); White Blood Cell (WBC) Count 9.6 thou/uL (4.8-10.8)
[2020-09-03 17:02] LABS: ALT (SGPT) 17 U/L (8-55); AST (SGOT) 13 U/L (5-34); Albumin 4.1 g/dL (3.5-5.0); Alkaline Phosphatase 53 U/L (40-110); Anion Gap 18 mmol/L (10-20); BUN (Urea Nitrogen) 17 mg/dL (8.4-25.7); Bilirubin, Total 0.5 mg/dL (0.2-1.2); Calc. Creatinine Clearance 0 mL/min (70-130); Calcium 9.3 mg/dL (7.8-10.44); Carbon Dioxide 25 mmol/L (22-29); Chloride 103 mmol/L (98-107); Globulin 3.2 g/dL (2.4-3.5); Glucose 104 mg/dL (70-105); Lipase 36 U/L (8-78); Magnesium 1.8 mg/dL (1.6-2.6); Potassium 3.5 mmol/L (3.5-5.1); Protein, Total 7.3 g/dL (6.0-8.3); Sodium 142 mmol/L (136-145)
== END 2020-09-03 18:47 | disposition home or self-care (01) ==
LOC: NAV ERS 16:17
DX: R00.2 Palpitations (principal); E86.0 Dehydration; R42 Dizziness and giddiness; I25.2 Old myocardial infarction; M10.9 Gout, unspecified; Z79.82 Long term (current) use of aspirin; Z79.899 Other long term (current) drug therapy
CPT/HCPCS: 71045; 80053; 83690; 83735; 84484; 85025; 93005; 94760; J7050

== ENCOUNTER 2020-09-28 08:50 | Emergency (ER) | payer SELFPAY ==
[2020-09-28 09:44] LABS: #Basophils 0.1 thou/uL (0.0-0.2); #Eosinphils 0.2 thou/uL (0.0-0.7); #Lymphocytes 1.9 thou/uL (1.20-3.40); #Monocytes 0.7 thou/uL (0.11-0.59); #Neutrophils 6.3 thou/uL (1.40-6.50); %Lymphocytes 20.4 % (21.0-51.0); %Monocytes 7.8 % (0.0-10.0); %Neutrophils 68.9 % (42.0-75.0); Hemoglobin 13.6 g/dL (14.0-18.0); Mean Corpuscular HGB CONC 31.8 g/dL (32.0-36.0); Mean Corpuscular Hemoglobin 28.5 pg (27.0-31.0); Mean Corpuscular Volume 89.5 fL (78.0-98.0); Mean Platelet Volume 6.6 fL (7.4-10.4); Platelet Count 227 thou/uL (130-400); RBC Distribution Width 11.5 % (11.5-14.5); Red Blood Cell (RBC) Count 4.79 mill/uL (4.70-6.10); White Blood Cell (WBC) Count 9.2 thou/uL (4.8-10.8)
[2020-09-28] MEDS ORDERED: methylPREDNISolone Acetate 40 mg/ml Vial ONE (10:14)
== END 2020-09-28 10:40 | disposition home or self-care (01) ==
LOC: NAV ERS 08:50
DX: M10.9 Gout, unspecified (principal); I25.2 Old myocardial infarction; Z79.82 Long term (current) use of aspirin; Z79.899 Other long term (current) drug therapy
CPT/HCPCS: 36415; 84550; 85025; 85379; 96372; J2920

== ENCOUNTER 2020-10-31 14:19 | Emergency (ER) | payer SELFPAY ==
[2020-10-31] MEDS ORDERED: methylPREDNISolone Acetate 40 mg/ml Vial ONE (14:44)
== END 2020-10-31 14:55 | disposition home or self-care (01) ==
LOC: NAV ERS 14:19
DX: M10.9 Gout, unspecified (principal); I25.2 Old myocardial infarction; I10 Essential (primary) hypertension; Z87.442 Personal history of urinary calculi; Z79.82 Long term (current) use of aspirin; Z79.899 Other long term (current) drug therapy; Z85.828 Personal history of other malignant neoplasm of skin
CPT/HCPCS: 96372; 99283; J2920

== ENCOUNTER 2020-11-29 07:41 | Emergency (ER) | payer SELFPAY ==
[2020-11-29] MEDS ORDERED: predniSONE 20 MG TAB ONE (08:52)
== END 2020-11-29 09:10 | disposition home or self-care (01) ==
LOC: NAV ERS 07:41
DX: M25.562 Pain in left knee (principal); M25.571 Pain in right ankle and joints of right foot; I25.2 Old myocardial infarction; I10 Essential (primary) hypertension; Z79.899 Other long term (current) drug therapy
CPT/HCPCS: 99283; J7512

== ENCOUNTER 2021-01-20 11:55 | Outpatient (CLI) | payer OTHER ==
[2021-01-20 13:23] LABS: ALT (SGPT) 16 U/L (8-55); AST (SGOT) 13 U/L (5-34); Alkaline Phosphatase 50 U/L (40-110); Anion Gap 14 mmol/L (10-20); BUN (Urea Nitrogen) 17 mg/dL (8.4-25.7); Bilirubin, Total 0.4 mg/dL (0.2-1.2); Calc. Creatinine Clearance 0 mL/min (70-130); Calcium 9.2 mg/dL (7.8-10.44); Carbon Dioxide 28 mmol/L (22-29); Chloride 101 mmol/L (98-107); Globulin 3.2 g/dL (2.4-3.5); Glucose 103 mg/dL (70-105); Potassium 3.5 mmol/L (3.5-5.1); Protein, Total 7.2 g/dL (6.0-8.3); Sodium 139 mmol/L (136-145); Uric Acid 12.6 mg/dL (3.5-7.2)
[2021-01-20 13:30] LABS: Follow-up Chemistry Comp? NO; Follow-up Result - Chemistry Y
[2021-01-20 23:44] LABS: Cardiac Risk 5.9 (Less than 4.5); Hemoglobin A1c 5.7 % (4.0-6.0); LDL Cholesterol, Calculated 104 mg/dL
[2021-01-21 00:45] LABS: Triglycerides 303 mg/dL (Less than 150)
[2021-01-21 00:50] LABS: Cholesterol 198 mg/dl (< 200 Desired); HDL Cholesterol 34 mg/dL (>60 Neg Risk)
== END 2021-01-20 11:56 | disposition home or self-care (01) ==
LOC: NAV LAB 11:55
PROVIDERS: ATTEND Family Medicine
DX: Z00.00 Encounter for general adult medical examination without abnormal findings (principal); M1A.00X0 Idiopathic chronic gout, unspecified site, without tophus (tophi)
CPT/HCPCS: 36415; 80053; 80061; 83036; 84550

== ENCOUNTER 2021-01-27 12:29 | Emergency (ER) | payer SELFPAY ==
[2021-01-27] MEDS ORDERED: Dexamethasone 4 mg/ml Vial ONE (12:49)
[2021-01-27] MEDS ORDERED: Acetaminophen 500 MG TAB ONE ×2 (12:49)
== END 2021-01-27 12:58 | disposition home or self-care (01) ==
LOC: NAV ERS 12:29
DX: M10.9 Gout, unspecified (principal); I25.2 Old myocardial infarction; I10 Essential (primary) hypertension
CPT/HCPCS: 96372; 99283; J1100

== ENCOUNTER 2021-02-05 08:24 | Emergency (ER) | payer OTHER, SELFPAY | END 2021-02-05 10:04 | disposition home or self-care (01) | LOC: NAV ERS 08:24 | DX: S13.9XXA Sprain of joints and ligaments of unspecified parts of neck, initial encounter (principal); I25.2 Old myocardial infarction; I10 Essential (primary) hypertension; Z79.899 Other long term (current) drug therapy; Z79.82 Long term (current) use of aspirin; V89.2XXA Person injured in unspecified motor-vehicle accident, traffic, initial encounter | CPT/HCPCS: 72125 ==

== ENCOUNTER 2021-02-23 18:16 | Emergency (ER) | payer OTHER, SELFPAY ==
[2021-02-23 18:35] LABS: #Basophils 0.1 thou/uL (0.0-0.2); #Monocytes 0.3 thou/uL (0.11-0.59); #Neutrophils 9.3 thou/uL (1.40-6.50); %Basophils 0.5 % (0.0-1.0); %Eosinophils 0.4 % (0.0-10.0); %Lymphocytes 9.5 % (21.0-51.0); %Monocytes 2.3 % (0.0-10.0); %Neutrophils 87.2 % (42.0-75.0); Hemoglobin 15.5 g/dL (14.0-18.0); Mean Corpuscular HGB CONC 32.6 g/dL (32.0-36.0); Mean Corpuscular Hemoglobin 28.7 pg (27.0-31.0); Mean Corpuscular Volume 88.1 fL (78.0-98.0); Mean Platelet Volume 6.5 fL (7.4-10.4); Platelet Count 287 thou/uL (130-400); Red Blood Cell (RBC) Count 5.41 mill/uL (4.70-6.10); White Blood Cell (WBC) Count 10.6 thou/uL (4.8-10.8)
[2021-02-23 19:05] LABS: ALT (SGPT) 23 U/L (8-55); AST (SGOT) 14 U/L (5-34); Albumin 4.3 g/dL (3.5-5.0); Alkaline Phosphatase 55 U/L (40-110); Anion Gap 16 mmol/L (10-20); BUN (Urea Nitrogen) 16 mg/dL (8.4-25.7); Bilirubin, Total 0.5 mg/dL (0.2-1.2); Calc. Creatinine Clearance 0 mL/min (70-130); Carbon Dioxide 25 mmol/L (22-29); Chloride 101 mmol/L (98-107); Globulin 3.3 g/dL (2.4-3.5); Glucose 223 mg/dL (70-105); Lipase 34 U/L (8-78); Potassium 3.9 mmol/L (3.5-5.1); Protein, Total 7.6 g/dL (6.0-8.3); Sodium 138 mmol/L (136-145)
[2021-02-23] MEDS ORDERED: Clopidogrel Bisulfate 75 MG TAB ONE (19:16)
[2021-02-23] MEDS ORDERED: Aspirin Chewable 81 MG TAB ONE (19:37)
[2021-02-23] MEDS ORDERED: Azithromycin 500 MG VIAL ONE (19:38)
[2021-02-23] MEDS ORDERED: cefTRIAXone\\ROCEPHIN 2 GM VIAL ONE (19:38)
[2021-02-23] MEDS ORDERED: Sodium Chloride 0.9% 100 ML ONE (19:38)
[2021-02-23] MEDS ORDERED: Sodium Chloride 0.9% 250 ML 250 ML ONE (19:39)
[2021-02-23] MEDS ORDERED: Sodium Chloride 0.9% 2,000 ML ONE (19:39)
[2021-02-23 20:33] LABS: SARS-CoV-2 NAA Rapid Test Not Detected (NotDetected)
[2021-02-23 22:01] LABS: Bilirubin Negative (Negative); Blood, Urine Negative (Negative); Clarity Clear (Clear); Glucose, Urine (Dipstick) Negative (Negative); Ketone, Urine Negative (Negative); Leukocyte Negative (Negative); Nitrite Negative (Negative); Protein, Urine (Dipstick) Negative (Neg-Trace); Specific Gravity, Urine 1.025 (1.005-1.030); Urobilinogen 0.2 mg/dL (Less than 2); pH, Urine 7.5 (5.0-9.0)
[2021-02-23] MEDS ORDERED: Sodium Chloride 0.9% 500 ML ONE (22:18)
== END 2021-02-23 22:35 | disposition short-term general hospital (02) ==
LOC: NAV ERS 18:16
DX: R07.9 Chest pain, unspecified (principal); R74.02 Elevation of levels of lactic acid dehydrogenase [LDH]; Z20.822 Contact with and (suspected) exposure to COVID-19; I25.2 Old myocardial infarction; M10.9 Gout, unspecified; I10 Essential (primary) hypertension; Z79.82 Long term (current) use of aspirin; Z79.899 Other long term (current) drug therapy
CPT/HCPCS: 36415; 71045; 71275; 80053; 81003; 83605; 83690; 84484; 85025; 85379; 87040; 93005; 96365; 96366; 96367; J0456; J0696; J3490; J7030; J7050; Q9967; U0002

== ENCOUNTER 2021-03-19 14:52 | Emergency (ER) | payer OTHER ==
[2021-03-19] MEDS ORDERED: methylPREDNISolone Acetate 40 mg/ml Vial ONE (15:11)
== END 2021-03-19 15:33 | disposition home or self-care (01) ==
LOC: NAV ERS 14:52
DX: L50.0 Allergic urticaria (principal); I25.2 Old myocardial infarction; I10 Essential (primary) hypertension; Z79.82 Long term (current) use of aspirin; Z79.899 Other long term (current) drug therapy
CPT/HCPCS: 96372; 99283; J2920

== ENCOUNTER 2021-04-27 21:32 | Emergency (ER) | payer SELFPAY ==
[2021-04-27] MEDS ORDERED: methylPREDNISolone Sod Succ/PF 125 MG/2 ML VIAL ONE (22:26)
== END 2021-04-27 22:50 | disposition home or self-care (01) ==
LOC: NAV ERS 21:32
DX: M10.9 Gout, unspecified (principal); Z79.899 Other long term (current) drug therapy; I25.2 Old myocardial infarction; I10 Essential (primary) hypertension; Z87.891 Personal history of nicotine dependence
CPT/HCPCS: 96372; 99283; J2930

== ENCOUNTER 2021-06-07 11:17 | Emergency (ER) | payer SELFPAY | END 2021-06-07 12:36 | disposition home or self-care (01) | LOC: NAV ERS 11:17 | DX: B34.9 Viral infection, unspecified (principal); J06.9 Acute upper respiratory infection, unspecified; I12.9 Hypertensive chronic kidney disease with stage 1 through stage 4 chronic kidney disease, or unspecified chronic kidney disease; N18.9 Chronic kidney disease, unspecified; I25.2 Old myocardial infarction; M10.9 Gout, unspecified; Z87.891 Personal history of nicotine dependence; Z79.52 Long term (current) use of systemic steroids; Z79.899 Other long term (current) drug therapy | CPT/HCPCS: 99283 ==

== ENCOUNTER 2021-10-04 16:56 | Emergency (ER) | payer SELFPAY ==
[2021-10-04] MEDS ORDERED: methylPREDNISolone Sod Succ/PF 125 MG/2 ML VIAL ONE (17:35)
== END 2021-10-04 17:41 | disposition home or self-care (01) ==
LOC: NAV ERS 16:56
DX: M10.9 Gout, unspecified (principal); I25.2 Old myocardial infarction; Z87.891 Personal history of nicotine dependence; I10 Essential (primary) hypertension; Z79.899 Other long term (current) drug therapy
CPT/HCPCS: 96372; 99283; J2930

== ENCOUNTER 2022-05-12 16:15 | Emergency (ER) | payer BC, SELFPAY ==
[2022-05-12] MEDS ORDERED: Colchicine 0.6 MG TAB PO SCH (17:45)
== END 2022-05-12 17:46 | disposition home or self-care (01) ==
LOC: NAV ERS 16:15
DX: M10.9 Gout, unspecified (principal); I10 Essential (primary) hypertension; Z87.891 Personal history of nicotine dependence; Z79.899 Other long term (current) drug therapy

== ENCOUNTER 2022-06-11 01:53 | Emergency (ER) | payer BC ==
[2022-06-11] MEDS ORDERED: Dexamethasone 4 MG TAB ONE (02:30)
[2022-06-11] MEDS ORDERED: Colchicine 0.6 MG TAB PO SCH ×2 (02:30→03:30)
== END 2022-06-11 03:42 | disposition home or self-care (01) ==
LOC: NAV ERS 01:53
DX: M10.9 Gout, unspecified (principal); I25.2 Old myocardial infarction; I10 Essential (primary) hypertension; Z87.442 Personal history of urinary calculi; Z79.899 Other long term (current) drug therapy
CPT/HCPCS: 99283; J8540

== ENCOUNTER 2022-06-17 10:40 | Emergency (ER) | payer BC ==
[2022-06-17] MEDS ORDERED: methylPREDNISolone Sod Succ/PF 125 MG/2 ML VIAL ONE (11:14)
== END 2022-06-17 11:23 | disposition home or self-care (01) ==
LOC: NAV ERS 10:40
DX: M10.9 Gout, unspecified (principal); I10 Essential (primary) hypertension; Z87.891 Personal history of nicotine dependence
CPT/HCPCS: 96372; 99283; J2930

== ENCOUNTER 2023-04-16 17:45 | Emergency (ER) | payer BC, SELFPAY ==
[2023-04-16] MEDS ORDERED: Acetaminophen 500 MG TAB ONE (18:01)
[2023-04-16 18:10] LABS: #Basophils 0.1 thou/uL (0.0-0.2); #Eosinphils 1.2 thou/uL (0.0-0.7); #Lymphocytes 2.7 thou/uL (1.20-3.40); #Monocytes 0.6 thou/uL (0.11-0.59); #Neutrophils 4.7 thou/uL (1.40-6.50); %Basophils 1.3 % (0.0-1.0); %Monocytes 6.5 % (0.0-10.0); %Neutrophils 50.2 % (42.0-75.0); Hematocrit 46.4 % (42.0-52.0); Hemoglobin 15.2 g/dL (14.0-18.0); Mean Corpuscular HGB CONC 32.7 g/dL (32.0-36.0); Mean Corpuscular Hemoglobin 29.7 pg (27.0-31.0); Mean Corpuscular Volume 90.6 fl (78.0-98.0); Mean Platelet Volume 7.1 fL (7.4-10.4); Platelet Count 285 10x3/uL (130-400); RBC Distribution Width 12.9 % (11.5-14.5); Red Blood Cell (RBC) Count 5.12 mill/uL (4.70-6.10); White Blood Cell (WBC) Count 9.3 10x3/uL (4.8-10.8)
[2023-04-16 18:14] LABS: ALT (SGPT) 16 U/L (8-55); AST (SGOT) 16 U/L (5-34); Albumin 4.2 g/dL (3.5-5.0); Alkaline Phosphatase 89 U/L (40-110); Anion Gap 17 mmol/L (10-20); BUN (Urea Nitrogen) 18 mg/dL (8.4-25.7); Bilirubin, Total 0.4 mg/dL (0.2-1.2); Calc. Creatinine Clearance 0 mL/min (70-130); Calcium 9.1 mg/dL (7.8-10.44); Carbon Dioxide 21 mmol/L (22-29); Chloride 106 mmol/L (98-107); Estimated GFR 56; Globulin 3.5 g/dL (2.4-3.5); Glucose 147 mg/dL (70-105); Potassium 3.9 mmol/L (3.5-5.1); Protein, Total 7.7 g/dL (6.0-8.3); Sodium 140 mmol/L (136-145)
[2023-04-16] MEDS ORDERED: Boostrix 0.5 ML (Tdap) VIAL (>/=7 yrs of age) ONE (18:32)
== END 2023-04-16 19:48 | disposition home or self-care (01) ==
LOC: NAV ERS 17:45
DX: S06.0X1A Concussion with loss of consciousness of 30 minutes or less, initial encounter (principal); S00.03XA Contusion of scalp, initial encounter; I10 Essential (primary) hypertension; I25.2 Old myocardial infarction; M10.9 Gout, unspecified; W55.12XA Struck by horse, initial encounter; Y93.89 Activity, other specified; Z23 Encounter for immunization; Z87.891 Personal history of nicotine dependence; Z79.899 Other long term (current) drug therapy
CPT/HCPCS: 36415; 70450; 72125; 72131; 80053; 85025; 90471; 90715

== ENCOUNTER 2023-11-16 14:31 | Emergency (ER) | payer MEDICARE, SELFPAY | END 2023-11-16 15:47 | disposition home or self-care (01) | LOC: NAV ERS 14:31 | DX: M43.6 Torticollis (principal); I10 Essential (primary) hypertension; Z87.891 Personal history of nicotine dependence | CPT/HCPCS: 99283 ==

== ENCOUNTER 2024-04-05 15:36 | Emergency (ER) | payer MEDICARE ==
[2024-04-05] MEDS ORDERED: methylPREDNISolone Acetate 40 mg/ml Vial ONE (15:56)
== END 2024-04-05 16:40 | disposition home or self-care (01) ==
LOC: NAV ERS 15:36
DX: L50.0 Allergic urticaria (principal); I10 Essential (primary) hypertension; Z87.891 Personal history of nicotine dependence
CPT/HCPCS: 96372; 99282; J1010

== ENCOUNTER 2024-04-06 01:30 | Emergency (ER) | payer MEDICARE ==
[2024-04-06] MEDS ORDERED: methylPREDNISolone Sod Succ/PF 125 MG/2 ML VIAL ONE (01:52)
[2024-04-06] MEDS ORDERED: Sodium Chloride 0.9% 1,000 ML ONE (01:52)
[2024-04-06] MEDS ORDERED: diphenhydrAMINE 50 MG/ML VIAL ONE (01:59)
== END 2024-04-06 02:51 | disposition home or self-care (01) ==
LOC: NAV ERS 01:30
DX: L50.0 Allergic urticaria (principal); I10 Essential (primary) hypertension; Z87.891 Personal history of nicotine dependence
CPT/HCPCS: 96374; 96375; 99282; J1200; J2919; J7030

== ENCOUNTER 2024-05-01 09:51 | Emergency (ER) | payer MEDICARE | END 2024-05-01 10:51 | disposition home or self-care (01) | LOC: NAV ERS 09:51 | DX: L50.9 Urticaria, unspecified (principal); I10 Essential (primary) hypertension; Z79.899 Other long term (current) drug therapy; Z87.891 Personal history of nicotine dependence | CPT/HCPCS: 99282 ==

== ENCOUNTER 2024-05-27 12:39 | Emergency (ER) | payer MEDICARE ==
[2024-05-27] MEDS ORDERED: Meclizine HCl 25 MG TAB ONE (13:30)
[2024-05-27 14:05] LABS: ALT (SGPT) 19 U/L (8-55); AST (SGOT) 13 U/L (5-34); Alkaline Phosphatase 61 U/L (40-110); Anion Gap 19 mmol/L (10-20); BUN (Urea Nitrogen) 18 mg/dL (8.4-25.7); Bilirubin, Total 0.4 mg/dL (0.2-1.2); Calc. Creatinine Clearance 0 mL/min (70-130); Calcium 9.2 mg/dL (7.8-10.44); Carbon Dioxide 22 mmol/L (23-31); Chloride 103 mmol/L (98-107); Estimated GFR 66; Globulin 3.5 g/dL (2.4-3.5); Glucose 167 mg/dL (80-115); Potassium 3.5 mmol/L (3.5-5.1); Protein, Total 7.5 g/dL (5.8-8.1); Sodium 140 mmol/L (136-145); Troponin I Less than 0.010 ng/mL (< 0.028)
[2024-05-27 14:31] LABS: #Basophils 0.1 thou/uL (0.0-0.2); #Eosinophils 0.3 thou/uL (0.0-0.7); #Lymphocytes 3.7 thou/uL (1.20-3.40); #Monocytes 0.5 thou/uL (0.11-0.59); #Neutrophils 5.4 thou/uL (1.40-6.50); %Basophils 0.9 % (0.0-1.0); %Eosinophils 3.3 % (0.0-10.0); %Lymphocytes 36.5 % (21.0-51.0); %Neutrophils 54.3 % (42.0-75.0); Hematocrit 43.7 % (42.0-52.0); Hemoglobin 14.9 g/dL (14.0-18.0); Mean Corpuscular HGB CONC 34.1 g/dL (32.0-36.0); Mean Corpuscular Volume 85.1 fl (78.0-98.0); Mean Platelet Volume 6.2 fL (7.4-10.4); Platelet Count 300 10x3/uL (130-400); RBC Distribution Width 11.5 % (11.5-14.5); Red Blood Cell (RBC) Count 5.13 mill/uL (4.70-6.10)
== END 2024-05-27 15:34 | disposition home or self-care (01) ==
LOC: NAV ERS 12:39
DX: R42 Dizziness and giddiness (principal); I10 Essential (primary) hypertension; Z87.891 Personal history of nicotine dependence
CPT/HCPCS: 71045; 80053; 84484; 85025; 93005

== ENCOUNTER 2024-07-24 13:20 | Emergency (ER) | payer MEDICARE, SELFPAY ==
[2024-07-24 14:19] LABS: ALT (SGPT) 14 U/L (Less than 45); AST (SGOT) 21 U/L (11-34); Albumin 4.4 g/dL (3.1-4.5); Alkaline Phosphatase 74 U/L (40-110); Anion Gap 14 mmol/L (10-20); BUN (Urea Nitrogen) 16 mg/dL (8.4-25.7); Bilirubin, Total 0.3 mg/dL (0.3-1.2); Calc. Creatinine Clearance 0 mL/min (70-130); Calcium 10.1 mg/dL (7.8-10.44); Carbon Dioxide 23 mmol/L (23-31); Chloride 107 mmol/L (98-107); Estimated GFR 72; Globulin 3.8 g/dL (2.4-3.5); Glucose 105 mg/dL (80-115); Potassium 3.9 mmol/L (3.5-5.1); Protein, Total 8.2 g/dL (5.8-8.1); Sodium 140 mmol/L (136-145)
[2024-07-24 14:26] LABS: #Basophils 0.1 thou/uL (0.0-0.2); #Eosinophils 0.6 thou/uL (0.0-0.7); #Lymphocytes 2.5 thou/uL (1.20-3.40); #Monocytes 0.7 thou/uL (0.11-0.59); #Neutrophils 7.1 thou/uL (1.40-6.50); %Eosinophils 5.1 % (0.0-10.0); %Lymphocytes 22.7 % (21.0-51.0); %Monocytes 6.5 % (0.0-10.0); %Neutrophils 64.8 % (42.0-75.0); Hemoglobin 14.6 g/dL (14.0-18.0); Mean Corpuscular HGB CONC 33.2 g/dL (32.0-36.0); Mean Corpuscular Hemoglobin 27.9 pg (27.0-31.0); Mean Corpuscular Volume 84.1 fl (78.0-98.0); Mean Platelet Volume 6.8 fL (7.4-10.4); Platelet Count 301 10x3/uL (130-400); RBC Distribution Width 11.5 % (11.5-14.5); Red Blood Cell (RBC) Count 5.23 mill/uL (4.70-6.10)
[2024-07-24] MEDS ORDERED: Sodium Chloride 0.9% 250 ML 250 ML ONE (14:53)
[2024-07-24] MEDS ORDERED: Sodium Chloride 0.9% 100 ML ONE (14:53)
[2024-07-24] MEDS ORDERED: Vancomycin 1 GM VIAL ONE (14:53)
[2024-07-24] MEDS ORDERED: cefTRIAXone (ROCEPHIN) 1 GM VIAL ONE (14:53)
== END 2024-07-24 17:22 | disposition home or self-care (01) ==
LOC: NAV ERS 13:20
DX: T81.49XA Infection following a procedure, other surgical site, initial encounter (principal); L03.114 Cellulitis of left upper limb; I25.2 Old myocardial infarction; I10 Essential (primary) hypertension; M10.9 Gout, unspecified; Z87.891 Personal history of nicotine dependence; Z79.899 Other long term (current) drug therapy
CPT/HCPCS: 80053; 83605; 85025; 87070; 87077; 87186; 87205; 96365; 96367; J0696; J3370; J7050

== ENCOUNTER 2024-07-25 22:24 | Emergency (ER) | payer OTHER ==
[2024-07-25] MEDS ORDERED: Sulfameth/Trimethoprim DS 800-160mg TAB ONE (22:52)
[2024-07-25] MEDS ORDERED: Cephalexin 500 MG CAP ONE (22:52)
== END 2024-07-25 23:10 | disposition home or self-care (01) ==
LOC: NAV ERS 22:24
DX: T81.49XA Infection following a procedure, other surgical site, initial encounter (principal); L03.114 Cellulitis of left upper limb; I10 Essential (primary) hypertension; Z87.891 Personal history of nicotine dependence
CPT/HCPCS: 99283

== ENCOUNTER 2025-01-29 12:52 | Emergency (ER) | payer MEDICARE ==
[2025-01-29 13:20] LABS: #Basophils 0.1 thou/uL (0.0-0.2); #Eosinophils 0.5 thou/uL (0.0-0.7); #Lymphocytes 2.1 thou/uL (1.20-3.40); #Monocytes 0.7 thou/uL (0.11-0.59); #Neutrophils 4.4 thou/uL (1.40-6.50); %Basophils 1.3 % (0.0-1.0); %Eosinophils 6.1 % (0.0-10.0); %Lymphocytes 26.9 % (21.0-51.0); %Monocytes 9.1 % (0.0-10.0); %Neutrophils 56.7 % (42.0-75.0); Hematocrit 45.7 % (42.0-52.0); Hemoglobin 15.8 g/dL (14.0-18.0); Mean Corpuscular Hemoglobin 28.9 pg (27.0-31.0); Mean Corpuscular Volume 83.6 fl (78.0-98.0); Platelet Count 274 10x3/uL (130-400); Red Blood Cell (RBC) Count 5.47 mill/uL (4.70-6.10); White Blood Cell (WBC) Count 7.8 10x3/uL (4.8-10.8)
[2025-01-29] MEDS ORDERED: Aspirin Chewable 81 MG TAB ONE (13:23)
[2025-01-29 13:34] LABS: ALT (SGPT) 18 U/L (Less than 45); AST (SGOT) 19 U/L (11-34); Albumin 4.4 g/dL (3.1-4.5); Alkaline Phosphatase 51 U/L (40-110); Anion Gap 18 mmol/L (10-20); BUN (Urea Nitrogen) 17 mg/dL (8.4-25.7); Bilirubin, Total 0.6 mg/dL (0.3-1.2); Calc. Creatinine Clearance 0 mL/min (70-130); Calcium 9.4 mg/dL (7.8-10.44); Carbon Dioxide 24 mmol/L (23-31); Chloride 103 mmol/L (98-107); Globulin 2.9 g/dL (2.4-3.5); Glucose 106 mg/dL (80-115); Potassium 3.8 mmol/L (3.5-5.1); Sodium 141 mmol/L (136-145); Troponin I Less than 0.010 ng/mL (< 0.028)
[2025-01-29 15:29] LABS: Glucose, Urine (Dipstick) Negative (Negative); Leukocyte Negative (Negative); Protein, Urine (Dipstick) Negative (Neg-Trace); Specific Gravity, Urine 1.010 (1.005-1.030)
[2025-01-29 15:38] LABS: Bacteria/HPF Rare-Few HPF (None Seen); CAUTI Indications for Culture Pelvic or flank pain; Mucous/LPF Rare LPF (<2+); RBC/HPF 0-3 HPF (0-3); WBC/HPF None Seen HPF (0-3)
[2025-01-29 15:40] LABS: Urine Culture Reflex No No
== END 2025-01-29 15:55 | disposition home or self-care (01) ==
LOC: NAV ERS 12:52
DX: E86.0 Dehydration (principal); I95.9 Hypotension, unspecified; I25.2 Old myocardial infarction; I10 Essential (primary) hypertension; Z87.891 Personal history of nicotine dependence; Z79.899 Other long term (current) drug therapy
CPT/HCPCS: 71045; 80053; 81001; 84484; 85025; 87426; 93005; 96360; J7030